=== PATIENT | male | born 1975 | race Caucasian/White ===

== ENCOUNTER 2020-07-05 17:31 | Emergency (ER) | payer MEDICAID, SELFPAY ==
[2020-07-05 17:58] VITALS: BP 159/105; PULSE 90; RESP 18; TEMP 36.9; O2SAT 97; BMI 34.4
--- NOTE | 2020-07-05 18:09 | W.ED.EAR ---
HPI - Ear Problem General: Chief complaint: Ear Stated complaint: PLUG IN R EAR/R EAR PAIN Time Seen by Provider: 07/05/20 18:08 History of Present Illness: HPI Narrative: Patient is a 44-year-old male comes to the ED with right ear complaint. Patient says his right ear has some mild pain and feels full. He says he has trouble hearing out of his right ear. Symptoms started about a week ago. Associated symptoms: Reports ear or mastoid pain (Right ear); Denies fever(s), headache(s) or neck pain Review of Systems Const: Denies: fever(s), chills or fatigue Eyes: Denies: change in vision or eye discomfort ENMT: Reports: ear or mastoid pain (Right ear) and change in hearing (Decreased hearing in right ear); Denies: throat pain, odynophagia, nasal discharge or nasal congestion Card: Denies: chest pain, palpitations, edema, swelling of feet/ankles, dyspnea on exertion or orthopnea Resp: Denies: dyspnea, productive cough or non-productive cough GI: Denies: abdominal pain, nausea, vomiting, diarrhea, constipation or hematochezia : Denies: flank pain, difficulty urinating, dysuria or hematuria Musc: Denies: neck pain, back pain or extremity swelling Skin/Breast: Denies: rash or new lesions Neuro: Denies: headache(s), numbness in extremities or weakness in extremities PFSH ED PFSH: Social History Current gender identity: Male Physical Exam Const: COMMON NORMALS: no acute distress, patient oriented x3 and alert GENERAL APPEARANCE: cooperative and comfortable HENMT: COMMON NORMALS: normocephalic and TM's normal bilaterally HEAD & SCALP: normocephalic EXTERNAL AUDITORY CANAL: Abnormal EAC present EAC laterality: right Details: erythema, edema and EAC tenderness TYMPANIC MEMBRANE: TM's normal bilaterally and other MOUTH: Normal oral and palatal mucosa present THROAT: posterior oropharynx normal and uvula midline Neck/C-Spine: COMMON NORMALS: supple GENERAL: Yes normal visual inspection Resp: COMMON NORMALS: normal respiratory effort, No retractions, No use of accessory muscles and clear to auscultation bilaterally AUSCULTATION: clear to auscultation bilaterally Cardio: COMMON NORMALS: regular rate, regular rhythm, S1 normal heart sound present, S2 normal heart sound present, No gallops present (Cardio), No clicks present (Cardio), No murmurs present (Cardio) and Peripheral pulses 2+ throughout RATE: regular rate RHYTHM: regular rhythm HEART SOUNDS: S1 normal heart sound present and S2 normal heart sound present PERIPHERAL PULSES: Peripheral pulses 2+ throughout GI: COMMON NORMALS: Normal to inspection, nondistended, normoactive bowel sounds present, Soft to palpation, non-tender and no masses PALPATION: Yes Soft to palpation : COMMON NORMALS: Yes no CVA tenderness BLADDER/KIDNEY EXAM: Yes no CVA tenderness Back/Pelvis: COMMON NORMALS: no CVA tenderness Extremity: COMMON NORMALS: normal to inspection Neuro: COMMON NORMALS: patient oriented x3 and moves all extremities SENSORIUM/ORIENTATION: Yes alert Skin: GENERAL SKIN EXAM: dry skin Course ED course: Upon exam of patient's right ear it was full of earwax and I was unable to see the tympanic membrane. I ordered Debrox and drops were placed in patient's right ear and ear wax was cleaned out and removed by the nurse. Patient said after getting the Debrox in the earwax out he is able to hear a lot better out of his right ear. Scope exam showed some erythema and swelling of the EAC of right ear. TM appeared normal. Patient diagnosed with otitis externa of right ear. He was discharged home with Ciprodex eardrops. Return to ED precautions given. Follow-up with PCP in 7 to 10 days for reevaluation. Patient understood agree with plan. Vital Signs: Vital signs: Vital Signs Temperature 98.5 F 07/05/20 19:32 Pulse Rate 88 07/05/20 19:32 Respiratory Rate 18 07/05/20 19:32 Blood Pressure 143/90 07/05/20 19:32 Pulse Oximetry 97 07/05/20 19:32 Discharge Plan Discharge Patient Disposition: Home Clinical Impression: Otitis externa Qualifiers: Otitis externa type: unspecified type Chronicity: acute Laterality: right Qualified Code(s): H60.501 - Unspecified acute noninfective otitis externa, right ear Condition: Stable Prescriptions: New Ciprodex 0.3-0.1 % drops,suspension 4 drp otic (ear) BID 7 Days Qty: 7.5 RF: 0 No Action carbamazepine 100 mg capsule, ER multiphase 12 hr 100 mg PO DAILY RF: 0 metoprolol succinate 100 mg capsule,sprinkle,ER 24hr 100 mg PO DAILY RF: 0 Discharge Orders: Discharge ED (Routine); Ordered 07/05/20 Ordered By: Deepak Garcia Discharge Diet: Regular Discharge Activity: Resume usual activity Patient Instructions: Otitis Externa (ED) Activity Restrictions/Additional Instructions: Follow-up with medical provider as directed in 7 to 10 days for reevaluation. Take medications as prescribed. Return to the ER or your medical provider if condition worsens. Please read and understand discharge instructions. Thank you for choosing [facility] for your healthcare needs today. Please realize this is an emergency room and that we are providing you with a medical screening exam and this may not be complete and all inclusive of all the testing and or work up that you may need to determine your ailment or severity of your illness. It is very important that you follow up as instructed or that you return to the Emergency Department should you have concerns or if your condition changes or worsens in any way. Coding Level of Care Code ED Cut Off Machine Helper for [place] Exam Comprehensive
[2020-07-05] MEDS: carbamide peroxide Otic 15 mL Btl 5 DROP EAR-RIGHT (18:45)
[2020-07-05 19:32] VITALS: BP 143/90; PULSE 88; RESP 18; TEMP 36.9; O2SAT 97
== END 2020-07-05 19:33 | disposition home or self-care (01) ==
PROVIDERS: Emergency Provider Physician Assistant
DX: H60.501 Unspecified acute noninfective otitis externa, right ear (principal)
CPT/HCPCS: 99282

== ENCOUNTER 2020-08-30 06:25 | Emergency (ER) | payer MEDICAID, SELFPAY ==
[2020-08-30 06:34] VITALS: BP 164/106; PULSE 80; RESP 16; TEMP 36.8; O2SAT 96; BMI 35.4
--- NOTE | 2020-08-30 06:57 | CTR_ITS ---
PROCEDURE INFORMATION: Exam: CT Abdomen And Pelvis Without Contrast Exam date and time: 08/30/2020 6:57 AM Age: 45 years old Clinical indication: Pain; Other: Right flank; Prior surgery; Surgery date: 6+ months; Surgery type: Gb/hernia; Additional info: R flank/rlq abd pain; Hematuria, renal stone protocol TECHNIQUE: Imaging protocol: Computed tomography of the abdomen and pelvis without contrast. Radiation optimization: All CT scans at this facility use at least one of these dose optimization techniques: automated exposure control; mA and/or kV adjustment per patient size (includes targeted exams where dose is matched to clinical indication); or iterative reconstruction. COMPARISON: No relevant prior studies available. RADIATION DOSE METRICS: Total DLP (mGy-cm): 2729.37 FINDINGS: Lungs: Anterior left basilar pulmonary subsegmental atelectasis Liver: Moderate diffuse hypoattenuation of the liver is present consistent with hepatic steatosis. Gallbladder and bile ducts: The gallbladder is surgically absent, with metallic clips in the gallbladder fossa. Pancreas: Normal. No ductal dilation. Spleen: Normal. No splenomegaly. Adrenal glands: Normal. No mass. Kidneys and ureters: The left pelvic ureter is mildly dilated to the level of a 2.2 mm calculus 7.5 mm above the ureterovesical junction. The left kidney shows mild pelviectasis and mild abdominal ureterectasis with mild perinephric stranding. Right renal lower pole 2.3 mm calyceal calculus. Right renal lower pole 2.3 mm calyceal calculus. Right renal lower pole accessory artery, normal variant. Stomach and bowel: Mild abdominal and proximal sigmoid colonic wall thickening with intramural hypoattenuation. Appendix: The vermiform appendix is normal. Intraperitoneal space: Unremarkable. No free air. No significant fluid collection. Vasculature: Unremarkable. No abdominal aortic aneurysm. Lymph nodes: No enlarged lymph nodes. Urinary bladder: The urinary bladder is decompressed and difficult to assess. Reproductive: The prostate gland demonstrates small central parenchymal calcification. Bones/joints: Anterior bridging left sacroiliac joint marginal osteophytes. L4-L5 spondylosis. Soft tissues: Unremarkable. CT/CT kidney stone [id number] IMPRESSION: 1. Left obstructive uropathy secondary to a left distal pelvic ureteral calculus. 2. Right renal calyceal lithiasis. 3. Mild abdominal and proximal sigmoid colonic wall thickening with intramural hypoattenuation. Mild nonspecific colitis versus sequela of prior chronic colitis. Clinical correlation with the patient's specific symptomatology is recommended. 4. Right renal calyceal lithiasis. 5. Fatty infiltration of the liver. 6. Prior cholecystectomy. 7. Mild chronic calcific prostatitis. Radiation Dose CTDIVOL = (mGy): DLP = 2729.37 (mGy-cm)
--- NOTE | 2020-08-30 07:00 | ED_ITS ---
HPI - Abdominal Pain General: Chief Complaint: Abdominal Pain Stated Complaint: abdomen pain Time Seen by Provider: 08/30/20 06:49 Source: patient Mode of arrival: ambulatory Limitations: no limitations History of Present Illness: HPI narrative: Patient with complaints of left flank and left lower quadrant abdominal pain that started this morning. States he noticed some mild hematuria this morning. States he thinks he is mildly constipated also. He did have a small hard bowel movement this morning. Denies any blood in his stool. Denies any melena. He denies any fever. He has had a history of kidney stones in the past. He reports a history of umbilical hernia repair with mesh and appendectomy. He states he quit smoking 6 days ago. He has no primary care physician. MD elicited complaint: abdominal pain Pertinent past history: kidney stones Onset (ago): hour(s) (one) Pain Consistency: constant Location: LLQ and L flank Severity: moderate Quality: cramping Migration to: LLQ Exacerbating factors: nothing Relieving factors: nothing Associated Symptoms: Reports no associated symptoms, constipation, GI cramping and hematuria; Denies chills, diarrhea, dysuria, fever(s), hematemesis, melena, nausea and vo miting Review of Systems Const: Denies: fever(s) or chills Eyes: Denies: change in vision ENMT: Denies: throat pain Card: Denies: chest pain or palpitations Resp: Denies: dyspnea or wheezing GI: Reports: abdominal pain, constipation and GI cramping; Denies: nausea, vomiting, hematemesis, diarrhea or melena : Reports: hematuria; Denies: dysuria Musc: Denies: neck pain or back pain Skin/Breast: Denies: rash or pruritus Neuro: Denies: headache(s) or numbness in extremities Psych: Denies: anxiety Matt/Lymph: Denies: enlarged lymph nodes PFS ED PFSH: Social History Current gender identity: Male Supplemental [facility] Information: Possible history of umbilical hernia repair and appendectomy. Patient states he quit smoking 6 days ago. Physical Exam Const: COMMON NORMALS: patient oriented x3, no limitations and well nourished GENERAL APPEARANCE: cooperative NUTRITIONAL APPEARANCE: obese ORIENTATION/CONSCIOUSNESS: Yes awake, Yes oriented to person, Yes oriented to place and Yes oriented to time OTHER: Moderate discomfort to the left flank and left lower quadrant HENMT: COMMON NORMALS: normocephalic and atraumatic HEAD & SCALP: normocephalic and atraumatic FACE & SINUS: normal facial exam Eye: COMMON NORMALS: EOMs intact bilaterally GENERAL EYE: appearance normal, both eyes and all related structures Neck/C-Spine: COMMON NORMALS: full ROM, no lymphadenopathy, supple and no meningeal signs GENERAL: Yes normal visual inspection Lymph: LYMPHATIC: no lymphadenopathy noted Chest: COMMONS NORMALS: normal inspection of the chest and normal palpation of entire chest wall CHEST: No Ecchymosis present and No rash Resp: COMMON NORMALS: normal respiratory effort, No retractions and clear to auscultation bilaterally EFFORT & INSPECTION: No respiratory distress AUSCULTATION: clear to auscultation bilaterally Cardio: COMMON NORMALS: regular rate, regular rhythm and Peripheral pulses 2+ throughout JUGULAR VENOUS DISTENTION: no JVD RATE: regular rate RHYTHM: regular rhythm PERIPHERAL PULSES: Peripheral pulses 2+ throughout GI: COMMON NORMALS: Soft to palpation, No hepatosplenomegaly present, no masses and no bruits INSPECTION: Yes incision (Old surgical scar to the umbilical area consistent with previous umbilical ) AUSCULTATION: Yes normoactive bowel sounds PALPATION: Yes Soft to palpation, Yes Tenderness to palpation present (GI) (Moderate left flank pain) Details: LLQ and Yes No hepatosplenomegaly present PERCUSSION: normal to percussion OTHER: Moderate left flank and left lower quadrant abdominal pain. : BLADDER/KIDNEY EXAM: Yes CVA tenderness Back/Pelvis: GENERAL BACK: Yes CVA tenderness CVA tenderness: left Extremity: COMMON NORMALS: normal to inspection, full ROM and capillary refill normal Neuro: COMMON NORMALS: patient oriented x3, CN's II-XII intact bilaterally, no focal motor deficits and no sensory deficits noted SENSORIUM/ORIENTATION: Yes oriented to person, Yes oriented to place and Yes oriented to time MENINGEAL SIGNS: Yes no meningeal signs Psych: COMMON NORMALS: mental status grossly normal, Normal thought process present and speech normal SPEECH: Yes normal speech THOUGHT PROCESS: Normal thought process present Skin: COMMON NORMALS: no rashes or lesions noted, no wounds and no jaundice GENERAL SKIN EXAM: no rashes or lesions noted Course Vital Signs: Vital signs: Vital Signs Temperature 97.9 F 06/30/21 08:23 Pulse Rate 72 08/30/20 08:23 Respiratory Rate 16 08/30/20 08:23 Blood Pressure 102/65 08/30/20 08:23 Pulse Oximetry 96 08/30/20 08:23 MDM - Abdominal Pain MDM Narrative: Medical decision making narrative: 0843: Patient is feeling better. Blood pressure 102/65. Patient has a 2.2 mm stone in the distal left ureter. Differential Diagnosis: Differential diagnosis abdominal pain: Likely abdominal pain, calculus of kidney and constipation Medical Records: Attestation: I reviewed the patient's medical records. Lab Data: Attestation: I reviewed the patient's lab results. Labs: Lab Results 08/30/20 08/30/20 Range/Units 07:28 07:28 WBC 10.5 H (4.0-10.0) 10^3/ uL RBC 5.88 H (4.1-5.3) 10^6/u L Hgb 17.2 H (11.7-16.6) g/dL Hct 50.8 (42.0-52.0) % MCV 86.4 (80-94) fL MCH 29.3 (28.0-34.0) pg MCHC 33.9 (30.0-36.0) g/dL RDW 12.0 L (12.1-15.1) % Plt Count 252 (130-400) 10^3/c mm MPV 10.4 (7.4-10.4) fL Neut % (Auto) 61.7 % Lymph % (Auto) 24.2 % Thomas % (Auto) 7.3 % Eos % (Auto) 5.7 % Baso % (Auto) 0.8 % Neut # (Auto) 6.45 (1.8-7.7) 10^3/u L Lymph # (Auto) 2.5 (0.8-4.8) 10^3/u L Thomas # (Auto) 0.8 (0.2-0.9) 10^3/u L Eos # (Auto) 0.6 (0.0-0.8) 10^3/u L Baso # (Auto) 0.1 (0.0-0.1) 10^3/u L Nucleated RBC % (a uto) 0 % Nucleated RBCs # 0.0 /100WBC Sodium 144 (136-145) mmol/L Potassium 3.9 (3.5-5.1) mmol/L Chloride 110 H (98-107) mmol/L Carbon Dioxide 25 (22-29) mmol/L Anion Gap 12.9 (5-19) BUN 13 (6-20) mg/dL Creatinine 0.8 (0.7-1.2) mg/dL GFR Calculation 104.5 (90-130) mL/min Glucose 122 H (65-115) mg/dL Calculated Osmolal ity 299 H (285-295) mOsm/k g Calcium 9.2 (8.5-10.5) mg/dL Imaging Data ^: CT Abd/Pel: Radiologist's impression: Sukhwinder [address] [id number] Scan ReportSigned Patient: Álvaro Guillory #: [id number]: 1975Acct#:[id number]/Sex: 45 / MADM Date: 08/30/20Loc: ERRoom/Bed:Attending Dr: Ordering Provider/Ordering MD: Neville Son MD Date of Service: 08/30/20 Procedure(s): CT kidney stone [id number] Accession Number(s): [id number] Report Number: [id number] PROCEDURE INFORMATION: Exam: CT Abdomen And Pelvis Without Contrast Exam date and time: 08/30/2020 6:57 AM Age: 45 years old Clinical indication: Pain; Other: Right flank; Prior surgery; Surgery date: 6+ months; Surgery type: Gb/hernia; Additional info: R flank/rlq abd pain; Hematuria, renal stone protocol TECHNIQUE: Imaging protocol: Computed tomography of the abdomen and pelvis without contrast. Radiation optimization: All CT scans at this facility use at least one of these dose optimization techniques: automated exposure control; mA and/or kV adjustment per patient size (includes targeted exams where dose is matched to clinical indication); or iterative reconstruction. COMPARISON: No relevant prior studies available. RADIATION DOSE METRICS: Total DLP (mGy-cm): 2729.37 FINDINGS: Lungs: Anterior left basilar pulmonary subsegmental atelectasis Liver: Moderate diffuse hypoattenuation of the liver is present consistent with hepatic steatosis. Gallbladder and bile ducts: The gallbladder is surgically absent, with metallic clips in the gallbladder fossa. Pancreas: Normal. No ductal dilation. Spleen: Normal. No splenomegaly. Adrenal glands: Normal. No mass. Kidneys and ureters: The left pelvic ureter is mildly dilated to the level of a 2.2 mm calculus 7.5 mm above the ureterovesical junction. The left kidney shows mild pelviectasis and mild abdominal ureterectasis with mild perinephric stranding. Right renal lower pole 2.3 mm calyceal calculus. Right renal lower pole 2.3 mm calyceal calculus. Right renal lower pole accessory artery, normal variant. Stomach and bowel: Mild abdominal and proximal sigmoid colonic wall thickening with intramural hypoattenuation. Appendix: The vermiform appendix is normal. Intraperitoneal space: Unremarkable. No free air. No significant fluid collection. Vasculature: Unremarkable. No abdominal aortic aneurysm. Lymph nodes: No enlarged lymph nodes. Urinary bladder: The urinary bladder is decompressed and difficult to assess. Reproductive: The prostate gland demonstrates small central parenchymal calcification. Bones/joints: Anterior bridging left sacroiliac joint marginal osteophytes. L4-L5 spondylosis. Soft tissues: Unremarkable. CT/CT kidney stone [id number] IMPRESSION: 1. Left obstructive uropathy secondary to a left distal pelvic ureteral calculus. 2. Right renal calyceal lithiasis. 3. Mild abdominal and proximal sigmoid colonic wall thickening with intramural hypoattenuation. Mild nonspecific colitis versus sequela of prior chronic colitis. Clinical correlation with the patient's specific symptomatology is recommended. 4. Right renal calyceal lithiasis. 5. Fatty infiltration of the liver. 6. Prior cholecystectomy. 7. Mild chronic calcific prostatitis. Radiation Dose CTDIVOL = (mGy): DLP = 2729.37 (mGy-cm) Dictated By:Jacoby Covington MDSigned By:Jacoby Covington MDSigned Date/Time:08/30/20 0806 Other Data: Attestation for Other Data: I personally reviewed and interpreted the following: Other Data: I briefly reviewed the CT scan of the abdomen and pelvis and it appears that patient has a calcified stone in the distal left ureter. Discharge Plan Discharge Patient Disposition: Home Clinical Impression: Kidney stones, Hydronephrosis due to obstruction of ureter Condition: Stable Prescriptions: New oxycodone 5 mg capsule 5 mg PO Q6H PRN (Reason: pain) Qty: 15 RF: 0 tamsulosin [Flomax] 0.4 mg capsule 0.4 mg PO DAILY Qty: 10 RF: 1 ondansetron HCl [Zofran] 4 mg tablet 4 mg PO Q6H PRN (Reason: nausea and vomiting) Qty: 10 RF: 2 Discontinued carbamazepine 100 mg capsule, ER multiphase 12 hr 100 mg PO DAILY RF: 0 metoprolol succinate 100 mg capsule,sprinkle,ER 24hr 100 mg PO DAILY RF: 0 Discharge Orders: Discharge ED (Routine); Ordered 08/30/20 Ordered By: Neville Son Referrals: Russell Nelson MD [Physician] - 7-10 days (Follow-up as needed.) Discharge Diet: Usual diet Discharge Activity: Resume usual activity Patient Instructions: Opioid Safety, Kidney Stones (ED), Renal Colic (ED) Activity Restrictions/Additional Instructions: Drink plenty of fluids. Follow-up with urology as needed. Coding Level of Care Code ED Health Promotion Specialist for [place] Exam Comprehensive
[2020-08-30] MEDS: ketorolac 30 mg/mL INJ IVP (07:32)
[2020-08-30] MEDS: sodium chloride 0.9% 1,000 ML 999 ML IV (07:34)
[2020-08-30] MEDS: ondansetron 2 mg/ML SDV 2 mL 4 MG IVP (07:34)
[2020-08-30 07:35] LABS: Basophils # 0.1 10^3/uL (0.0-0.1); Basophils % 0.8 %; Eosinophils # 0.6 10^3/uL (0.0-0.8); Eosinophils % 5.7 %; Hematocrit 50.8 % (42.0-52.0); Hemoglobin 17.2 g/dL (11.7-16.6); Lymphocytes # 2.5 10^3/uL (0.8-4.8); Lymphocytes % 24.2 %; Mean Corpuscular HGB Conc 33.9 g/dL (30.0-36.0); Mean Corpuscular Hemoglobin 29.3 pg (28.0-34.0); Mean Corpuscular Volume 86.4 fL (80-94); Mean Platelet Volume 10.4 fL (7.4-10.4); Monocytes # 0.8 10^3/uL (0.2-0.9); Monocytes % 7.3 %; Neutrophils # 6.45 10^3/uL (1.8-7.7); Neutrophils % 61.7 %; Nucleated Red Blood Cells % 0 %; Platelet Count 252 10^3/cmm (130-400); Red Blood Count 5.88 10^6/uL (4.1-5.3); White Blood Count 10.5 10^3/uL (4.0-10.0)
[2020-08-30 08:02] LABS: Blood Urea Nitrogen 13 mg/dL (6-20); Calcium 9.2 mg/dL (8.5-10.5); Carbon Dioxide 25 mmol/L (22-29); Chloride 110 mmol/L (98-107); Creatinine Clr Calc Pharmacy 133.0409; Glomerular Filtration Rate 104.5 mL/min (90-130); Glucose 122 mg/dL (65-115); Osmolality Calculated 299 mOsm/kg (285-295); Sodium 144 mmol/L (136-145)
[2020-08-30 08:04] LABS: Anion Gap 12.9 (5-19); Potassium 3.9 mmol/L (3.5-5.1)
[2020-08-30 08:23] VITALS: BP 102/65; PULSE 72; RESP 16; TEMP 36.6; O2SAT 96
[2020-08-30 08:51] LABS: Add Urine Culture? Yes; Add Urine Microscopic? YES; Bacteria Urine 3+ /hpf; Bilirubin Urine 1+ (Negative); Blood Urine 3+ (Negative); Glucose Urine UA Norm (Normal); Ketones Urine 1+ (Negative); Leukocyte Esterase Urine Negative (Negative); Mucus Urine TRACE /hpf; Nitrate Urine Negative (Negative); Protein Urine 1+ (Negative); RBC Urine >100 /hpf (0-2); Squamous Epithelial Cell Urine 0-4 /hpf (0-5); Urine Appearance Turbid (CLEAR); Urine Color Yellow (Yellow); Urobilinogen Urine 1 mg/dL (Negative); WBC Urine 0-4 /hpf (0-5); pH Urine 5 (5-7)
[2020-08-30 09:00] VITALS: BP 123/76; PULSE 76; RESP 19; TEMP 37.1; O2SAT 99
== END 2020-08-30 09:03 | disposition home or self-care (01) ==
PROVIDERS: Emergency Provider Family Medicine
DX: N13.2 Hydronephrosis with renal and ureteral calculous obstruction (principal)
CPT/HCPCS: 74176; 80048; 81001; 85025; 87086; 96361; 96374; 96375; 99284; J1885; J2405; J7030

== ENCOUNTER 2020-09-02 08:02 | Emergency (ER) | payer MEDICAID, SELFPAY ==
[2020-09-02 08:15] VITALS: BP 179/119; PULSE 71; RESP 15; TEMP 36.6; O2SAT 98; BMI 31.3
--- NOTE | 2020-09-02 08:20 | ED_ITS ---
HPI - Abdominal Pain General: Chief Complaint: Abdominal Pain Stated Complaint: LEFT SIDE PAIN Time Seen by Provider: 09/02/20 08:15 Source: patient Mode of arrival: ambulatory Limitations: no limitations History of Present Illness: HPI narrative: Patient seen emergency room a few days ago for left flank pain and left renal colic. Patient diagnosed with a 2 mm stone in the left distal ureter. Patient states he continues having pain. He states he has been taking his medication as prescribed. He does not appear in any distress. See previous CT scan report MD elicited complaint: abdominal pain and flank pain Pertinent past history: kidney stones Onset (ago): day(s) (4) Pain Consistency: constant (Waxing and waning) and colicky Location: LLQ and L flank Severity: moderate Quality: sharp Radiation: none Migration to: no migration Exacerbating factors: nothing Relieving factors: other (Pain meds) Associated Symptoms: Reports diarrhea and nausea; Denies chills, dysuria, fever(s) and vomiting Treatments prior to arrival: prescription analgesics Review of Systems Const: Denies: fever(s) or chills Eyes: Denies: change in vision ENMT: Denies: throat pain Card: Denies: chest pain or palpitations Resp: Denies: dyspnea or wheezing GI: Reports: abdominal pain (Left lower quadrant abdominal pain and left flank pain), nausea and diarrhea; Denies: vomiting : Reports: flank pain; Denies: dysuria Musc: Denies: neck pain or back pain Skin/Breast: Denies: rash or pruritus Neuro: Denies: headache(s) or numbness in extremities Psych: Denies: anxiety Matt/Lymph: Denies: enlarged lymph nodes FORMERLY [facility], 1928–1983 ED PFSH: Social History Current gender identity: Male Physical Exam Const: COMMON NORMALS: no acute distress, patient oriented x3, no limitations and well nourished EXAM LIMITATIONS: altered mental status GENERAL APPEARANCE: cooperative HENMT: COMMON NORMALS: normocephalic and atraumatic HEAD & SCALP: normocephalic and atraumatic FACE & SINUS: normal facial exam Eye: COMMON NORMALS: EOMs intact bilaterally Neck/C-Spine: COMMON NORMALS: full ROM, no lymphadenopathy, supple and no meningeal signs GENERAL: Yes normal visual inspection Lymph: LYMPHATIC: no lymphadenopathy noted Chest: COMMONS NORMALS: normal inspection of the chest and normal palpation of entire chest wall CHEST: No Ecchymosis present and No rash Resp: COMMON NORMALS: normal respiratory effort, No retractions and clear to auscultation bilaterally EFFORT & INSPECTION: No respiratory distress AUSCULTATION: clear to auscultation bilaterally Cardio: COMMON NORMALS: regular rate, regular rhythm and Peripheral pulses 2+ throughout JUGULAR VENOUS DISTENTION: no JVD RATE: regular rate RHYTHM: regular rhythm PERIPHERAL PULSES: Peripheral pulses 2+ throughout GI: COMMON NORMALS: Normal to inspection, nondistended, normoactive bowel sounds present (Obese) and Soft to palpation PALPATION: Yes Soft to palpation and Yes Tenderness to palpation present (GI) (Left flank pain) Details: LLQ : COMMON NORMALS: Yes no CVA tenderness BLADDER/KIDNEY EXAM: Yes no CVA tenderness and Yes CVA tenderness Back/Pelvis: COMMON NORMALS: no CVA tenderness GENERAL BACK: Yes CVA tenderness CVA tenderness: left Extremity: COMMON NORMALS: normal to inspection, full ROM and capillary refill normal Neuro: COMMON NORMALS: patient oriented x3, CN's II-XII intact bilaterally, no focal motor deficits and no sensory deficits noted MENINGEAL SIGNS: Yes no meningeal signs Psych: COMMON NORMALS: mental status grossly normal and Normal thought process present THOUGHT PROCESS: Normal thought process present Skin: COMMON NORMALS: no rashes or lesions noted and no wounds GENERAL SKIN EXAM: no rashes or lesions noted Course Vital Signs: Vital signs: Vital Signs Temperature 97.9 F 09/02/20 08:15 Pulse Rate 81 09/02/20 09:33 Respiratory Rate 15 09/02/20 08:15 Blood Pressure 159/111 09/02/20 09:33 Pulse Oximetry 97 09/02/20 09:33 MDM - Abdominal Pain MDM Narrative: Medical decision making narrative: 0840: I readjust the blood pressure cuff and recheck blood pressure is 163/99. His blood pressure was normal last time he was here. Patient states he used to take antihypertensive medications a couple years ago but he ran out of medication and never refilled it. Patient states he has a history of bipolar disorder and schizoaffective disorder. 0918: bp 148/99. he wants rx for htn Medical Records: Attestation: I reviewed the patient's medical records. Medical records narrative: See previous ER visit on August 30. Patient had a 2.2 mm stone in the distal third of the left ureter. With mild hydronephrosis. Lab Data: Attestation: I reviewed the patient's lab results. Labs: Lab Results 09/02/20 09/02/20 09/02/20 Range/Units 08:30 08:30 09:20 WBC 8.1 (4.0-10.0) 10^3/ uL RBC 5.62 H (4.1-5.3) 10^6/u L Hgb 16.6 (11.7-16.6) g/dL Hct 48.7 (42.0-52.0) % MCV 86.7 (80-94) fL MCH 29.5 (28.0-34.0) pg MCHC 34.1 (30.0-36.0) g/dL RDW 11.9 L (12.1-15.1) % Plt Count 233 (130-400) 10^3/c mm MPV 10.5 H (7.4-10.4) fL Neut % (Auto) 51.5 % Lymph % (Auto) 32.5 % Grand % (Auto) 7.7 % Eos % (Auto) 7.5 % Baso % (Auto) 0.6 % Neut # (Auto) 4.18 (1.8-7.7) 10^3/u L Lymph # (Auto) 2.6 (0.8-4.8) 10^3/u L Grand # (Auto) 0.6 (0.2-0.9) 10^3/u L Eos # (Auto) 0.6 (0.0-0.8) 10^3/u L Baso # (Auto) 0.1 (0.0-0.1) 10^3/u L Nucleated RBC % (a uto) 0 % Nucleated RBCs # 0.0 /100WBC Sodium 143 (136-145) mmol/L Potassium 4.1 (3.5-5.1) mmol/L Chloride 107 (98-107) mmol/L Carbon Dioxide 27 (22-29) mmol/L Anion Gap 13.1 (5-19) BUN 8 (6-20) mg/dL Creatinine 0.8 (0.7-1.2) mg/dL GFR Calculation 104.5 (90-130) mL/min Glucose 112 (65-115) mg/dL Calculated Osmolal ity 295 (285-295) mOsm/k g Calcium 9.2 (8.5-10.5) mg/dL Urine Color Dark yellow (Yellow) Urine Appearance Hazy A (CLEAR) Urine pH 5 (5-7) Ur Specific Gravit y 1.015 (1.005-1.030) Urine Protein Neg (Negative) Urine Glucose (UA) Norm (Normal) Urine Ketones Negative (Negative) Urine Blood 3+ H (Negative) Urine Nitrate Negative (Negative) Urine Bilirubin Neg (Negative) Urine Urobilinogen Norm (Negative) mg/dL Ur Leukocyte Ijeoma ase Negative (Negative) Urine RBC 25-40 H (0-2) /hpf Urine WBC 0-4 H (0-5) /hpf Ur Squamous Epith Cells None (0-5) /hpf Amorphous Sediment Not Reportable Urine Bacteria Trace (NONE) /hpf Urine Mucus Trace /hpf Trace urinary tract infection Discharge Plan Discharge Patient Disposition: Home Clinical Impression: Kidney stones, Renal colic on left side, Benign essential hypertension Urinary tract infection Qualifiers: Urinary tract infection type: site unspecified Hematuria presence: with hematuria Qualified Code(s): N39.0 - Urinary tract infection, site not specified Condition: Stable Prescriptions: New losartan 25 mg tablet 25 mg PO DAILY Qty: 30 RF: 2 cephalexin 500 mg capsule 500 mg PO QID 5 Days Qty: 20 RF: 0 Naprosyn 500 mg tablet 500 mg PO BID PRN (Reason: pain) Qty: 10 RF: 2 No Action oxycodone 5 mg capsule 5 mg PO Q6H PRN (Reason: pain) Qty: 15 RF: 0 Flomax 0.4 mg capsule 0.4 mg PO DAILY Qty: 10 RF: 1 Zofran 4 mg tablet 4 mg PO Q6H PRN (Reason: nausea and vomiting) Qty: 10 RF: 2 Discharge Orders: Discharge ED (Routine); Ordered 09/02/20 Ordered By: Neville Son Referrals: Russell Nelson MD [Physician] - (follow up as needed) Discharge Diet: Advance as tolerated Discharge Activity: Resume usual activity Patient Instructions: Renal Colic (ED), Abdominal Pain (ED), Hypertension (ED), Opioid Safety Activity Restrictions/Additional Instructions: May take losartan daily for high blood pressure. Drink plenty water. Coding Level of Care Code ED Space Control Supervisor for Tello Fwd Exam Comprehensive
[2020-09-02 08:21] VITALS: O2SAT 98
[2020-09-02 08:38] LABS: Basophils # 0.1 10^3/uL (0.0-0.1); Basophils % 0.6 %; Eosinophils # 0.6 10^3/uL (0.0-0.8); Eosinophils % 7.5 %; Hematocrit 48.7 % (42.0-52.0); Hemoglobin 16.6 g/dL (11.7-16.6); Lymphocytes # 2.6 10^3/uL (0.8-4.8); Lymphocytes % 32.5 %; Mean Corpuscular HGB Conc 34.1 g/dL (30.0-36.0); Mean Corpuscular Hemoglobin 29.5 pg (28.0-34.0); Mean Corpuscular Volume 86.7 fL (80-94); Mean Platelet Volume 10.5 fL (7.4-10.4); Monocytes # 0.6 10^3/uL (0.2-0.9); Monocytes % 7.7 %; Neutrophils # 4.18 10^3/uL (1.8-7.7); Neutrophils % 51.5 %; Nucleated Red Blood Cells % 0 %; Platelet Count 233 10^3/cmm (130-400); Red Blood Count 5.62 10^6/uL (4.1-5.3); Red Cell Distribution Width 11.9 % (12.1-15.1); White Blood Count 8.1 10^3/uL (4.0-10.0)
[2020-09-02 08:52] LABS: Anion Gap 13.1 (5-19); Blood Urea Nitrogen 8 mg/dL (6-20); Calcium 9.2 mg/dL (8.5-10.5); Carbon Dioxide 27 mmol/L (22-29); Chloride 107 mmol/L (98-107); Glomerular Filtration Rate 104.5 mL/min (90-130); Glucose 112 mg/dL (65-115); Osmolality Calculated 295 mOsm/kg (285-295); Potassium 4.1 mmol/L (3.5-5.1); Sodium 143 mmol/L (136-145)
[2020-09-02 09:33] VITALS: BP 159/111; PULSE 81; O2SAT 97
[2020-09-02 09:45] LABS: Bacteria Urine TRACE /hpf; Bilirubin Urine Neg (Negative); Blood Urine 3+ (Negative); Glucose Urine UA Norm (Normal); Ketones Urine Negative (Negative); Leukocyte Esterase Urine Negative (Negative); Mucus Urine TRACE /hpf; Nitrate Urine Negative (Negative); Protein Urine Neg (Negative); Specific Gravity, Urine 1.015 (1.005-1.030); Urine Appearance Hazy (CLEAR); Urine Color Dark Yellow (Yellow); Urobilinogen Urine Norm (Negative); WBC Urine 0-4 /hpf (0-5); pH Urine 5 (5-7)
[2020-09-02 09:46] LABS: Add Urine Culture? No; RBC Urine 25-40 /hpf (0-2)
[2020-09-02] MEDS: cephALEXin 500 mg Capsule PO (10:04)
[2020-09-02 10:06] VITALS: BP 161/112; PULSE 68; RESP 15; O2SAT 95
== END 2020-09-02 10:08 | disposition home or self-care (01) ==
PROVIDERS: Emergency Provider Family Medicine
DX: N39.0 Urinary tract infection, site not specified (principal); N20.0 Calculus of kidney; I10 Essential (primary) hypertension
CPT/HCPCS: 80048; 81001; 85025; 87086; 99283; J1170; J2405

== ENCOUNTER 2020-09-15 05:18 | Emergency (ER) | payer MEDICAID, SELFPAY ==
[2020-09-15 05:29] VITALS: BP 168/96; PULSE 92; RESP 16; TEMP 36.7; O2SAT 96; BMI 31.3
--- NOTE | 2020-09-15 05:39 | CT_ITS ---
WS: [id number] CT ABDOMEN AND PELVIS WITH CONTRAST HISTORY: Abdominal pain. TECHNIQUE: Imaging performed of the abdomen and pelvis with IV contrast. Single phase imaging of the abdomen. Coronal and sagittal reformats are submitted. All CT scans at [facility] use at least one of these dose optimization techniques: automated exposure control; mA and/or kV adjustment per patient size (includes targeted exams where dose is matched to clinical indication); or iterativ e reconstruction. IV CONTRAST: Omnipaque 300; 95 mL IV. Oral contrast: No DLP: 1838.56 mGy.cm COMPARISON: 08/30/2020 Lower thorax: Lung bases are clear. Heart is normal size. Small hiatal hernia. Liver/biliary system: Diffuse hepatic steatosis is moderate. No bile duct dilatation or mass. Normal portal vein. Gallbladder: Status post cholecystectomy. Pancreas: Normal size pancreas and pancreatic duct. No adjacent inflammation. Spleen: Normal size spleen. No mass or infarct. Adrenal glands: Normal. Right kidney: There are mild perinephric stranding. Very slight dilatation of the RIGHT renal pelvis at the RIGHT ureter. There is a 2 mm calcification in the distal ureter causing the mild obstruction. This calcification was previously seen in the lower pole of the kidney on 08/30/2020. Left kidney: Normal. Distal ureteral stone no longer evident. Aorta: Normal. Lymphadenopathy: None. Free fluid: None. GI tract: Normal appendix. There is some very mild mucosal thickening and edema within the RIGHT and transverse colon. No significant pericolonic inflammation. There is mild wall thickening of the dista l colon and a few diverticuli constipation. Abdominal wall: Fat containing umbilical hernia. Pelvis: Nondistended urinary bladder. Bladder wall is thick due to the nondistention. No free fluid o r adenopathy. Bones: Mild straightening of the normal lumbar lordosis. CT/CT abdomen pelvis w con* [id number] IMPRESSION: 1. Very mild RIGHT hydroureteronephrosis secondary to 2 mm calcification in th e distal ureter. New since 08/30/2020. 2. Distal LEFT ureteral calcification no longer present. 3. Prior cholecystectomy. 4. Hepatic steatosis and hepatomegaly. 5. Normal appendix. 6. Very mild mucosal edema in the ascending and transverse colon. Early change s of colitis not excluded by this time there is no pericolonic inflammation. 7. Distal colonic constipation.
--- NOTE | 2020-09-15 05:39 | ED_ITS ---
Documented by User: Leila Barrios MD 09/15/20 05:41 HPI - Abdominal Pain General: Chief Complaint: Abdominal Pain Stated Complaint: abd pain Time Seen by Provider: 09/15/20 05:35 Source: patient Mode of arrival: ambulatory Limitations: no limitations History of Present Illness: HPI narrative: 45-year-old male states that he started having right lower quadrant abdominal pain roughly 1 to 2 hours ago. States pain is severe in nature and most worse with movement or palpation. He has had kidney stones recently and states he passed 2 kidney stones last week. He states this feels little different than his typical stone. He has had nausea and vomiting. Denies any fevers. He rates his pain a 9 out of 10. Associated Symptoms: Reports nausea and vomiting; Denies chills, dysuria and fever(s) Review of Systems Const: Denies: fever(s), chills, body aches or change in appetite Eyes: Denies: blurry vision or eye discomfort ENMT: Denies: throat pain or dental pain Card: Denies: chest pain Resp: Denies: dyspnea GI: Reports: abdominal pain, nausea and vomiting : Denies: dysuria Musc: Denies: neck pain or back pain Skin/Breast: Denies: rash Neuro: Denies: headache(s) Psych: Denies: depression Matt/Lymph: Denies: easy bruising All/Imm: Denies: urticaria PFSH ED PFSH: Social History Current gender identity: Male Physical Exam Const: COMMON NORMALS: no acute distress, patient oriented x3 and healthy appearing HENMT: COMMON NORMALS: normocephalic and atraumatic HEAD & SCALP: normocephalic and atraumatic Eye: COMMON NORMALS: Equal, round and reactive pupils present and EOMs intact bilaterally PUPIL: Yes Equal, round and reactive pupils present Neck/C-Spine: COMMON NORMALS: full ROM and supple Chest: COMMONS NORMALS: normal inspection of the chest and normal palpation of entire chest wall Resp: COMMON NORMALS: normal respiratory effort, No retractions, No use of accessory muscles and clear to auscultation bilaterally AUSCULTATION: clear to auscultation bilaterally Cardio: COMMON NORMALS: regular rate, regular rhythm and No murmurs present (Cardio) RATE: regular rate RHYTHM: regular rhythm GI: COMMON NORMALS: Normal to inspection, nondistended, normoactive bowel sounds present, Soft to palpation, non-tender and no masses PALPATION: Yes Soft to palpation and Yes Tenderness to palpation present (GI) Details: RLQ Extremity: COMMON NORMALS: normal to inspection and full ROM Neuro: COMMON NORMALS: patient oriented x3, moves all extremities and no focal motor deficits Psych: COMMON NORMALS: mental status grossly normal, Normal thought process present and cooperative THOUGHT PROCESS: Normal thought process present Skin: COMMON NORMALS: no rashes or lesions noted and no wounds GENERAL SKIN EXAM: no rashes or lesions noted Course Vital Signs: Vital signs: Vital Signs Temperature 98.1 F 09/15/20 05:29 Pulse Rate 75 09/15/20 06:12 Respiratory Rate 18 09/15/20 06:12 Blood Pressure 164/116 09/15/20 06:12 Pulse Oximetry 94 09/15/20 06:12 MDM - Abdominal Pain Lab Data: Labs: Lab Results 09/15/20 09/15/20 09/15/20 Range/Units 06:00 06:00 06:45 WBC 10.8 H (4.0-10.0) 10^3/ uL RBC 5.65 H (4.1-5.3) 10^6/u L Hgb 16.9 H (11.7-16.6) g/dL Hct 48.9 (42.0-52.0) % MCV 86.5 (80-94) fL MCH 29.9 (28.0-34.0) pg MCHC 34.6 (30.0-36.0) g/dL RDW 11.9 L (12.1-15.1) % Plt Count 246 (130-400) 10^3/c mm MPV 10.7 H (7.4-10.4) fL Neut % (Auto) 67.9 % Lymph % (Auto) 20.8 % [place] % (Auto) 6.5 % Eos % (Auto) 3.8 % Baso % (Auto) 0.7 % Neut # (Auto) 7.35 (1.8-7.7) 10^3/u L Lymph # (Auto) 2.3 (0.8-4.8) 10^3/u L [place] # (Auto) 0.7 (0.2-0.9) 10^3/u L Eos # (Auto) 0.4 (0.0-0.8) 10^3/u L Baso # (Auto) 0.1 (0.0-0.1) 10^3/u L Nucleated RBC % (a uto) 0 % Nucleated RBCs # 0.0 /100WBC Sodium 140 (136-145) mmol/L Potassium 4.1 (3.5-5.1) mmol/L Chloride 103 (98-107) mmol/L Carbon Dioxide 26 (22-29) mmol/L Anion Gap 15.1 (5-19) BUN 15 (6-20) mg/dL Creatinine 1.1 (0.7-1.2) mg/dL GFR Calculation 72.4 L (90-130) mL/min Glucose 150 H (65-115) mg/dL Calculated Osmolal ity 294 (285-295) mOsm/k g Calcium 9.0 (8.5-10.5) mg/dL Total Bilirubin 0.6 (0.15-1.2) mg/dL AST 23 (0-40) U/L ALT 36 (0-41) U/L Alkaline Phosphata se 127 (40-130) IU/L Total Protein 7.6 (6.6-8.7) g/dL Albumin 4.4 (3.5-5.2) g/dL Globulin 3.2 (1.3-4.6) g/dL Lipase 123 H (13-60) U/L Urine Color Dark yellow (Yellow) Urine Appearance Hazy A (CLEAR) Urine pH 5 (5-7) Ur Specific Gravit y 1.025 (1.005-1.030) Urine Protein 1+ H (Negative) Urine Glucose (UA) Norm (Normal) Urine Ketones Negative (Negative) Urine Blood 3+ H (Negative) Urine Nitrate Negative (Negative) Urine Bilirubin 1+ H (Negative) Urine Urobilinogen 1 H (Negative) mg/dL Ur Leukocyte Ijeoma ase Negative (Negative) Urine RBC Too numerous to c nt H (0-2) /hpf Urine WBC None (0-5) /hpf Ur Squamous Epith Cells None (0-5) /hpf Amorphous Sediment Not Reportable Urine Bacteria 1+ H (NONE) /hpf Discharge Plan Discharge Patient Disposition: Home Clinical Impression: Nephrolithiasis Condition: Stable Prescriptions: New Zofran 4 mg tablet 4 mg PO Q6H PRN (Reason: nausea and vomiting) Qty: 20 RF: 0 tamsulosin 0.4 mg capsule 0.4 mg PO DAILY Qty: 14 RF: 0 No Action losartan 25 mg tablet 25 mg PO DAILY Qty: 30 RF: 2 Naprosyn 500 mg tablet 500 mg PO BID PRN (Reason: pain) Qty: 10 RF: 2 oxycodone 5 mg capsule 5 mg PO Q6H PRN (Reason: pain) Qty: 15 RF: 0 Flomax 0.4 mg capsule 0.4 mg PO DAILY Qty: 10 RF: 1 Zofran 4 mg tablet 4 mg PO Q6H PRN (Reason: nausea and vomiting) Qty: 10 RF: 2 Discharge Orders: Discharge ED (Routine); Ordered 09/15/20 Ordered By: Iglesia Michaud Discharge Diet: Usual diet Patient Instructions: Opioid Safety Activity Restrictions/Additional Instructions: Strain urine Case management will call to make arrangements for follow-up with Dr. Nelson Sign Out Sign Out Data: Patient Sign Out occurred on 09/15/20 at 07:47. Patient's care was discussed, and care was transferred from to Iglesia Michaud DO. Coding Level of Care Code ED Genetic Engineer for Chg Fwd Exam Comprehensive Documented by User: Iglesia Michaud DO 09/15/20 08:51 HPI - Abdominal Pain General: Chief Complaint: Abdominal Pain Stated Complaint: abd pain Time Seen by Provider: 09/15/20 05:35 PFSH ED PFSH: Social History Current gender identity: Male Course Vital Signs: Vital signs: Vital Signs Temperature 98.1 F 09/15/20 05:29 Pulse Rate 75 09/15/20 06:12 Respiratory Rate 18 09/15/20 06:12 Blood Pressure 164/116 09/15/20 06:12 Pulse Oximetry 94 09/15/20 06:12 MDM - Abdominal Pain MDM Narrative: Medical decision making narrative: Care assumed at change of shift. CT shows 2 mm ureteral stone. Most of them continue the oxycodone add ondansetron as needed and tamsulosin . We will have him follow-up with Dr. Nelson. Strain urine until then. Lab Data: Labs: Lab Results 09/15/20 09/15/20 09/15/20 Range/Units 06:00 06:00 06:45 WBC 10.8 H (4.0-10.0) 10^3/ uL RBC 5.65 H (4.1-5.3) 10^6/u L Hgb 16.9 H (11.7-16.6) g/dL Hct 48.9 (42.0-52.0) % MCV 86.5 (80-94) fL MCH 29.9 (28.0-34.0) pg MCHC 34.6 (30.0-36.0) g/dL RDW 11.9 L (12.1-15.1) % Plt Count 246 (130-400) 10^3/c mm MPV 10.7 H (7.4-10.4) fL Neut % (Auto) 67.9 % Lymph % (Auto) 20.8 % [place] % (Auto) 6.5 % Eos % (Auto) 3.8 % Baso % (Auto) 0.7 % Neut # (Auto) 7.35 (1.8-7.7) 10^3/u L Lymph # (Auto) 2.3 (0.8-4.8) 10^3/u L [place] # (Auto) 0.7 (0.2-0.9) 10^3/u L Eos # (Auto) 0.4 (0.0-0.8) 10^3/u L Baso # (Auto) 0.1 (0.0-0.1) 10^3/u L Nucleated RBC % (a uto) 0 % Nucleated RBCs # 0.0 /100WBC Sodium 140 (136-145) mmol/L Potassium 4.1 (3.5-5.1) mmol/L Chloride 103 (98-107) mmol/L Carbon Dioxide 26 (22-29) mmol/L Anion Gap 15.1 (5-19) BUN 15 (6-20) mg/dL Creatinine 1.1 (0.7-1.2) mg/dL GFR Calculation 72.4 L (90-130) mL/min Glucose 150 H (65-115) mg/dL Calculated Osmolal ity 294 (285-295) mOsm/k g Calcium 9.0 (8.5-10.5) mg/dL Total Bilirubin 0.6 (0.15-1.2) mg/dL AST 23 (0-40) U/L ALT 36 (0-41) U/L Alkaline Phosphata se 127 (40-130) IU/L Total Protein 7.6 (6.6-8.7) g/dL Albumin 4.4 (3.5-5.2) g/dL Globulin 3.2 (1.3-4.6) g/dL Lipase 123 H (13-60) U/L Urine Color Dark yellow (Yellow) Urine Appearance Hazy A (CLEAR) Urine pH 5 (5-7) Ur Specific Gravit y 1.025 (1.005-1.030) Urine Protein 1+ H (Negative) Urine Glucose (UA) Norm (Normal) Urine Ketones Negative (Negative) Urine Blood 3+ H (Negative) Urine Nitrate Negative (Negative) Urine Bilirubin 1+ H (Negative) Urine Urobilinogen 1 H (Negative) mg/dL Ur Leukocyte Ijeoma ase Negative (Negative) Urine RBC Too numerous to c nt H (0-2) /hpf Urine WBC None (0-5) /hpf Ur Squamous Epith Cells None (0-5) /hpf Amorphous Sediment Not Reportable Urine Bacteria 1+ H (NONE) /hpf Discharge Plan Discharge Patient Disposition: Home Clinical Impression: Nephrolithiasis Condition: Stable Prescriptions: New Zofran 4 mg tablet 4 mg PO Q6H PRN (Reason: nausea and vomiting) Qty: 20 RF: 0 tamsulosin 0.4 mg capsule 0.4 mg PO DAILY Qty: 14 RF: 0 No Action losartan 25 mg tablet 25 mg PO DAILY Qty: 30 RF: 2 Naprosyn 500 mg tablet 500 mg PO BID PRN (Reason: pain) Qty: 10 RF: 2 oxycodone 5 mg capsule 5 mg PO Q6H PRN (Reason: pain) Qty: 15 RF: 0 Flomax 0.4 mg capsule 0.4 mg PO DAILY Qty: 10 RF: 1 Zofran 4 mg tablet 4 mg PO Q6H PRN (Reason: nausea and vomiting) Qty: 10 RF: 2 Discharge Orders: Discharge ED (Routine); Ordered 09/15/20 Ordered By: Iglesia Michaud Discharge Diet: Usual diet Patient Instructions: Opioid Safety Activity Restrictions/Additional Instructions: Strain urine Case management will call to make arrangements for follow-up with Dr. Nelson Sign Out Sign Out Data: Patient Sign Out occurred on 09/15/20 at 07:47. Patient's care was discussed, and care was transferred from to Iglesia Michaud DO. Coding Level of Care Code ED Genetic Engineer for [place] Exam Comprehensive
[2020-09-15 06:06] LABS: Basophils # 0.1 10^3/uL (0.0-0.1); Basophils % 0.7 %; Eosinophils # 0.4 10^3/uL (0.0-0.8); Eosinophils % 3.8 %; Hematocrit 48.9 % (42.0-52.0); Hemoglobin 16.9 g/dL (11.7-16.6); Lymphocytes # 2.3 10^3/uL (0.8-4.8); Lymphocytes % 20.8 %; Mean Corpuscular HGB Conc 34.6 g/dL (30.0-36.0); Mean Corpuscular Hemoglobin 29.9 pg (28.0-34.0); Mean Corpuscular Volume 86.5 fL (80-94); Mean Platelet Volume 10.7 fL (7.4-10.4); Monocytes # 0.7 10^3/uL (0.2-0.9); Monocytes % 6.5 %; Neutrophils # 7.35 10^3/uL (1.8-7.7); Neutrophils % 67.9 %; Nucleated Red Blood Cells % 0 %; Platelet Count 246 10^3/cmm (130-400); Red Blood Count 5.65 10^6/uL (4.1-5.3); Red Cell Distribution Width 11.9 % (12.1-15.1); White Blood Count 10.8 10^3/uL (4.0-10.0)
[2020-09-15] MEDS: ondansetron 2 mg/ML SDV 2 mL 4 MG IVP (06:09)
[2020-09-15] MEDS: sodium chloride 0.9% 1,000 ML 999 ML IV (06:09)
[2020-09-15 06:12] VITALS: BP 164/116; PULSE 75; RESP 18; O2SAT 94
[2020-09-15 06:20] LABS: Alanine Aminotransferase 36 U/L (0-41); Albumin Level 4.4 g/dL (3.5-5.2); Alkaline Phosphatase 127 IU/L (40-130); Anion Gap 15.1 (5-19); Aspartate Amino Transferase 23 U/L (0-40); Blood Urea Nitrogen 15 mg/dL (6-20); Carbon Dioxide 26 mmol/L (22-29); Chloride 103 mmol/L (98-107); Globulin 3.2 g/dL (1.3-4.6); Glomerular Filtration Rate 72.4 mL/min (90-130); Glucose 150 mg/dL (65-115); Lipase 123 U/L (13-60); Osmolality Calculated 294 mOsm/kg (285-295); Potassium 4.1 mmol/L (3.5-5.1); Sodium 140 mmol/L (136-145); Total Bilirubin 0.6 mg/dL (0.15-1.2); Total Protein 7.6 g/dL (6.6-8.7)
[2020-09-15] MEDS: diphenhydrAMINE 50 mg/mL SDV 1mL IVP (06:35)
[2020-09-15] MEDS: hydrocortisone 100 mg/2 mL SDV IVP (06:35)
[2020-09-15] MEDS: iodixanol 320 mg/mL 100mL Btl IV (06:47)
[2020-09-15 07:15] LABS: Urine Appearance Hazy (CLEAR); Urine Color Dark Yellow (Yellow)
[2020-09-15 07:16] LABS: Add Urine Culture? Yes; Add Urine Microscopic? YES; Bacteria Urine 1+ /hpf; Bilirubin Urine 1+ (Negative); Blood Urine 3+ (Negative); Glucose Urine UA Norm (Normal); Ketones Urine Negative (Negative); Leukocyte Esterase Urine Negative (Negative); Nitrate Urine Negative (Negative); Protein Urine 1+ (Negative); RBC Urine TOO NUMEROUS TO CNT /hpf (0-2); Specific Gravity, Urine 1.025 (1.005-1.030); Urobilinogen Urine 1 mg/dL (Negative); pH Urine 5 (5-7)
[2020-09-15 08:51] VITALS: BP 121/98; PULSE 86; RESP 16; O2SAT 95
--- NOTE | 2020-09-15 09:16 | DCPLANNER ---
christmas tree farm manager had message to schedule a follow up appointment for patient with Dr. Nelson. christmas tree farm manager called the office of Dr. Nelson, spoke with Melly, gave clinic patients information. christmas tree farm manager was told that patients information would be printed and reviewed. Clinic will call patient with appointment information.
--- NOTE | 2020-09-20 12:01 | DCPLANNER ---
Patient had a follow up appointment scheduled for , September 21, 2020 at 1:[address] Nelson. Clinic will call patient with appointment information.
--- NOTE | 2020-10-20 13:39 | DCPLANNER ---
Patient had a follow up appointment scheduled for 09.21.[address] Nelson - patient did attend appointment.
== END 2020-09-15 08:53 | disposition home or self-care (01) ==
PROVIDERS: Emergency Medicine; Emergency Provider Family Medicine
DX: N20.0 Calculus of kidney (principal)
CPT/HCPCS: 74177; 80053; 81001; 83690; 85025; 87086; 96361; 96374; 96375; 99284; J1200; J1720; J2270; J2405; J7030; Q9967

== ENCOUNTER 2020-09-21 12:41 | Outpatient (CLI) | payer MEDICAID, SELFPAY ==
--- NOTE | 2020-09-21 13:00 | XR_ITS ---
WS: [id number] KUB, AP view, 09/21/2020 Clinical Data: nephrolithiasis Comparison: CT abdomen and pelvis, 09/15/2020. Findings: No abnormal intraabdominal masses or calcifications are seen. There is no dilatated small bowel or ev idence of obstruction. Fecal material in the colon and gas obscure detail over the kidneys. There are clips in the right upp er quadrant from a cholecystectomy. XR/XR KUB [id number] Impression: Negative KUB.
== END 2020-09-21 12:42 | disposition home or self-care (01) ==
PROVIDERS: Visit Provider Urology
DX: N20.0 Calculus of kidney (principal)
CPT/HCPCS: 74018; 81003

== ENCOUNTER 2020-10-25 12:20 | Emergency (ER) | payer MEDICAID, SELFPAY ==
[2020-10-25 12:30] VITALS: BP 173/118; PULSE 73; RESP 17; TEMP 36.7; O2SAT 96; BMI 35.2
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
[2020-10-25] MEDS: neomycin-poly-bacitracin oint 0.9 gm Pkt 1 APPLIC TOPICAL (13:40)
== END 2020-10-25 13:47 | disposition home or self-care (01) ==
PROVIDERS: Emergency Provider Family Medicine
DX: T25.222A Burn of second degree of left foot, initial encounter (principal); X10.2XXA Contact with fats and cooking oils, initial encounter; Y93.G3 Activity, cooking and baking; Z87.891 Personal history of nicotine dependence
CPT/HCPCS: 99282

== ENCOUNTER → 2020-11-09 14:53 | Outpatient (BNVA) | payer MEDICAID, SELFPAY | PROVIDERS: PCP Family Medicine; Visit Provider Family Medicine | DX: F25.9 Schizoaffective disorder, unspecified (principal); Z13.220 Encounter for screening for lipoid disorders; Z13.6 Encounter for screening for cardiovascular disorders; Z76.89 Persons encountering health services in other specified circumstances; F31.62 Bipolar disorder, current episode mixed, moderate; I10 Essential (primary) hypertension | CPT/HCPCS: 80061 ==

== ENCOUNTER → 2021-06-01 13:13 | Outpatient (BNVA) | payer MEDICAID, SELFPAY | PROVIDERS: PCP Family Medicine; Visit Provider Psychiatry & Neurology Psychiatry | DX: F25.9 Schizoaffective disorder, unspecified (principal); F31.62 Bipolar disorder, current episode mixed, moderate; F43.12 Post-traumatic stress disorder, chronic; F33.2 Major depressive disorder, recurrent severe without psychotic features; F17.210 Nicotine dependence, cigarettes, uncomplicated; I10 Essential (primary) hypertension | CPT/HCPCS: 99204 ==

== ENCOUNTER → 2021-07-02 10:21 | Outpatient (BNVA) | payer MEDICAID, SELFPAY | PROVIDERS: PCP Family Medicine; Visit Provider Psychiatry & Neurology Psychiatry | DX: F33.2 Major depressive disorder, recurrent severe without psychotic features (principal); F43.12 Post-traumatic stress disorder, chronic; F17.210 Nicotine dependence, cigarettes, uncomplicated | CPT/HCPCS: 99214 ==

== ENCOUNTER 2021-11-08 18:52 | Emergency (ER) | payer MEDICAID, SELFPAY ==
--- NOTE | 2021-11-08 18:54 | XRR_ITS ---
PROCEDURE INFORMATION: Exam: XR Chest Exam date and time: 11/08/2021 8:48 PM Age: 46 years old Clinical indication: Shortness of breath; Additional info: SOB TECHNIQUE: Imaging protocol: Radiologic exam of the chest. Views: 1 view. COMPARISON: CR XR KUB [id number] 09/21/2020 12:49 PM FINDINGS: Lungs: Unremarkable. No consolidation. Pleural spaces: Unremarkable. No pleural effusion. No pneumothorax. Heart/Mediastinum: Unremarkable. No cardiomegaly. Bones/joints: Unremarkable. XR/XR chest 1V portable [id number] IMPRESSION: No acute findings.
[2021-11-08 19:01] VITALS: BP 144/84; PULSE 108; RESP 18; TEMP 38.2; O2SAT 96; BMI 29.5
--- NOTE | 2021-11-08 19:32 | ECG_ITS ---
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 Measurements Intervals [place] Rate: 105 P: 38 AK: 139 QRS: -7 QRSD: 81 T: 45 QT: 343 QTc: 455 Interpretive Statements SINUS TACHYCARDIA POSSIBLE LEFT ATRIAL ENLARGEMENT [-0.1mV P-WAVE IN V1/V2] No previous ECG available for comparison Electronically Signed On 11-09-2021 14:28:03 CDT by Valentin Quintana M.D. [id number]
--- NOTE | 2021-11-08 19:56 | W.ED.SOB ---
HPI - SOB/Dyspnea General: Chief Complaint: Shortness of Breath/Dyspnea Stated Complaint: SOB Time Seen by Provider: 11/08/21 19:14 History of Present Illness: HPI Narrative: 46-year-old male patient in today with complaints of general ill feeling. Patient reports that starting this morning he woke up and has follow-up somewhat short of breath. He reports that this morning his chest was a little bit tight it still tight but does not radiate anywhere. He reports that 3 on a 0-to-10 scale. Coughing does make it worse. He reports he has had significant nasal congestion and drainage. He reports fever, chills all day. He reports that he is just felt generally unwell. He is concerned about COVID. Associated symptoms: Reports chest pain (He reports a chest tightness that is worse with coughing and deep inspirati) and fever(s); Deny abdominal pain, nausea, palpitations or vomiting Review of Systems Const: Reports: fever(s), chills and body aches ENMT: Reports: throat pain, nasal congestion and post nasal drip Card: Reports: chest pain (He reports a chest tightness that is worse with coughing and deep inspirati); Denies: palpitations or irregular heart rhythm GI: Denies: abdominal pain, nausea or vomiting : Denies: flank pain, dysuria or urinary frequency Neuro: Reports: headache(s); Denies: numbness in extremities, weakness in extremities, sensory changes or lack of coordination Psych: Reports: anxiety PFSH ED PFSH: Medical History HTN (hypertension) Psychiatric care Right ureteral calculus Family History Mother Hypertension Social History Smoking and tobacco status: current every day smoker cigars Cigars smoked per week: 30 Years smoked cigars: 31 Quit status (tobacco): has tried quititng Number of times tried to quit tobacco: 2 Second hand smoke exposure: Yes Alcohol intake: never Marital status: Current occupational status: disabled Current gender identity: Male Physical Exam Const: COMMON NORMALS: no acute distress, patient oriented x3 and alert GENERAL APPEARANCE: not well kempt HENMT: COMMON NORMALS: external ears normal, EAC's normal, TM's normal bilaterally and Normal external nose present NOSE: Normal external nose present, Normal nares present and Nasal discharge present clear EXTERNAL EAR: Yes external ears normal EXTERNAL AUDITORY CANAL: EAC's normal TYMPANIC MEMBRANE: TM's normal bilaterally THROAT: posterior oropharynx normal and postnasal drainage Lymph: LYMPHATIC: no lymphadenopathy noted Resp: COMMON NORMALS: normal respiratory effort, No retractions, No use of accessory muscles and clear to auscultation bilaterally AUSCULTATION: clear to auscultation bilaterally Cardio: COMMON NORMALS: regular rate, regular rhythm, S1 normal heart sound present and S2 normal heart sound present RATE: regular rate RHYTHM: regular rhythm HEART SOUNDS: S1 normal heart sound present and S2 normal heart sound present Neuro: COMMON NORMALS: patient oriented x3 SENSORIUM/ORIENTATION: Yes alert Psych: APPEARANCE: No well kempt MOOD & AFFECT: Yes anxious Course Vital Signs: Vital signs: Vital Signs Temperature 100.8 F H 11/08/21 19:01 Pulse Rate 108 H 11/08/21 19:01 Respiratory Rate 18 11/08/21 19:01 Blood Pressure 144/84 11/08/21 19:01 Pulse Oximetry 96 11/08/21 19:01 Oxygen Delivery Me thod 11/08/21 19:01 MDM - SOB/Dyspnea Medical Decision Making 46-year-old male patient in today for ill feeling starting today. He reports he has had upper respiratory symptoms, chest tightness, shortness of breath, fever, chills, body aches. The patient does not appear to be in any distress. His respirations are even and non-labored his sats are within normal limits on room air. He reports chest pain is worse with coughing and deep inspiration. EKG was done-no acute ST changes appreciated. Chest x-ray-no acute changes COVID PCR collected and sent. Discussed with patient that this is likely a viral upper respiratory infection and could be COVID-19. We discussed conservative treatments at home. We discussed resting staying well-hydrated. Cough deep breathe multiple times an hour to keep the lung bases open. Tylenol Motrin as needed for fever and body aches. I advised the patient that the COVID PCR would not be back for the next couple of hours. We will notify him should the test result positive. We discussed [facility] quarantine guidelines. Patient verbalized understanding of all instructions. We discussed red flags for worsening condition and when to return to the ER. 2240?patient negative for COVID attempted to call the patient to advise him of negative result and no answer. The cell phone number the patient gave me today is [phone] Lab Data Labs/Radiology: Radiology Impressions Chest X-Ray 11/08/21 18:54 IMPRESSION: No acute findings. Laboratory Results Coronavirus 229E (PCR) Not detected (NOT DETECT) 11/08/21 19:21 SARS-CoV-2 (PCR) Not detected (NOT DETECT) 11/08/21 19:21 Discharge Plan Discharge Patient Disposition: Home Clinical Impression: URI (upper respiratory infection) Condition: Stable Prescriptions: No Action fluoxetine [Prozac] 20 mg capsule 20 mg PO DAILY Qty: 30 1RF risperidone [Risperdal] 1 mg tablet 1 mg PO BID Qty: 60 1RF trazodone 50 mg tablet 100 mg PO .HS PRN (Reason: insomnia) Qty: 60 1RF Discharge Orders: Discharge ED (Routine); Ordered 11/08/21 Ordered By: Kayy Del Valle Referrals: Jag Chawla DO [Primary Care Provider] - Discharge Diet: Usual diet Discharge Activity: Increase activity as tolerated Activity Restrictions/Additional Instructions: Your chest x-ray did not show any abnormalities. Your COVID test is still pending. Someone will notify you should that result positive. I recommend rest, increased hydration. Self quarantine at home until you know for sure the results of your COVID test. Return to the emergency department as needed for worsening symptoms, shortness of breath, chest pain, uncontrolled fever with Tylenol Motrin. Follow-up with your primary care provider next week. Coding Level of Care Code ED Medical Coding Instructor for Tello Fwricarda Exam Detailed
[2021-11-08 22:13] LABS: Adenovirus Not Detected (NOT DETECT); Chlamydia Pneumoniae Not Detected (NOT DETECT); Coronavirus 229E,HKU1,NL63,OC4 Not Detected (NOT DETECT); Human Metapneumovirus Not Detected (NOT DETECT); Human Rhinovirus/Enterovirus Not Detected (NOT DETECT); Influenza A Not Detected (NOT DETECT); Influenza A H1 Not Detected (NOT DETECT); Influenza A H1-2009 Not Detected (NOT DETECT); Influenza A H3 Not Detected (NOT DETECT); Influenza B Not Detected (NOT DETECT); Mycoplasma Pneumoniae Not Detected (NOT DETECT); Parainfluenza Virus Type 1 Not Detected (NOT DETECT); Parainfluenza Virus Type 2 Not Detected (NOT DETECT); Parainfluenza Virus Type 3 Not Detected (NOT DETECT); Parainfluenza Virus Type 4 Not Detected (NOT DETECT); Respiratory Syncytial Virus A Not Detected (NOT DETECT); Respiratory Syncytial Virus B Not Detected (NOT DETECT); SARS-COV-2 Not Detected (NOT DETECT)
== END 2021-11-08 21:26 | disposition home or self-care (01) ==
PROVIDERS: Emergency Provider Nurse Practitioner Family; PCP Family Medicine
DX: J06.9 Acute upper respiratory infection, unspecified (principal); F17.290 Nicotine dependence, other tobacco product, uncomplicated; R07.89 Other chest pain; I10 Essential (primary) hypertension; Z20.822 Contact with and (suspected) exposure to COVID-19
CPT/HCPCS: 71045; 87635; 93005; 99284

== ENCOUNTER → 2021-12-31 12:32 | Outpatient (BNVA) | payer MEDICAID, SELFPAY | PROVIDERS: PCP Family Medicine; Visit Provider Registered Nurse Neonatal Intensive Care | DX: M25.562 Pain in left knee (principal); M25.462 Effusion, left knee | CPT/HCPCS: 73562 ==

== ENCOUNTER → 2023-08-19 14:09 | Outpatient (BNVA) | payer MEDICAID, SELFPAY | PROVIDERS: PCP Family Medicine; Visit Provider Family Medicine | DX: I10 Essential (primary) hypertension (principal); F31.62 Bipolar disorder, current episode mixed, moderate; Z13.220 Encounter for screening for lipoid disorders; Z13.6 Encounter for screening for cardiovascular disorders; R73.9 Hyperglycemia, unspecified | CPT/HCPCS: 80053; 80061; 83036; 84443; 85025 ==

== ENCOUNTER → 2023-12-08 10:06 | Outpatient (BNVA) | payer MEDICAID, SELFPAY | PROVIDERS: PCP Family Medicine | DX: J02.9 Acute pharyngitis, unspecified (principal) | CPT/HCPCS: 87071; 87880 ==

== ENCOUNTER 2024-03-24 15:38 | Emergency (ER) | payer MEDICAID, SELFPAY ==
--- NOTE | 2024-03-24 15:42 | ECG_ITS ---
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 Measurements Intervals [place] Rate: 67 P: 22 IL: 139 QRS: 1 QRSD: 102 T: 75 QT: 381 QTc: 403 Interpretive Statements SINUS RHYTHM Compared to ECG 11/08/2021 19:32:09 Sinus tachycardia no longer present Electronically Signed On 03-27-2024 23:12:48 [employer]KS [employer] RECREATION WORKER by Valentin Quintana M.D. [id number]
--- NOTE | 2024-03-24 15:42 | XR_ITS ---
WS: [id number] Portable AP upright chest, 03/24/2024 Clinical Data: cp Comparison: Portable chest, 11/08/2021 Findings: No nodules, masses or effusions are seen. The heart is normal. The pulmonary vascularity is not increased. No pneumonia or pneumothorax is seen. XR/XR chest 1V portable [id number] Impression: Negative chest.
[2024-03-24 16:10] VITALS: BP 126/87; PULSE 61; RESP 18; TEMP 36.5; O2SAT 98; BMI 31.3
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
== END 2024-03-24 18:31 | disposition home or self-care (01) ==
PROVIDERS: Emergency Provider Emergency Medicine; PCP Family Medicine
DX: R07.81 Pleurodynia (principal); I10 Essential (primary) hypertension
CPT/HCPCS: 71045; 93005; 99285

== ENCOUNTER → 2024-12-13 14:09 | Outpatient (BNVA) | payer MEDICAID, SELFPAY | DX: I10 Essential (primary) hypertension (principal) | CPT/HCPCS: 80053; 80061; 83036; 85025 ==